=== PATIENT | female | born 2000 | race American Indian/Alaskan Native ===

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

== ENCOUNTER 2019-08-26 09:44 | Emergency (ER) | payer MEDICAID, OTHER ==
[2019-08-26 09:59] VITALS: BP 117/77; PULSE 101
[2019-08-26 10:34] LABS: ANION GAP 14.1; CHLORIDE,CL 101 mmol/L (101-111); SODIUM,NA 132 mmol/L (135-145)
[2019-08-26] MEDS ORDERED: Sodium Chloride 0.9% 1,000 ML IV ONE (10:37)
[2019-08-26] MEDS ORDERED: Levofloxacin/Dextrose 5%-Water 750 MG in Premix Bag 1 BAG IV ONE (10:58)
[2019-08-26] MEDS ORDERED: Ketorolac 30 MG/ML SDV IVPUSH ONE (11:02)
--- NOTE | 2019-08-26 11:02 | EDM.PDOC ---
ED HPI GENERAL MEDICAL PROBLEM - General Chief Complaint: Flank Pain Stated Complaint: PAIN IN BACK/CHILLS Time Seen by Provider: 08/26/19 09:55 Source of Information: Reports: Patient History Limitations: Reports: No Limitations - History of Present Illness INITIAL COMMENTS - FREE TEXT/NARRATIVE: ED with c/o right flank pain x 2 days with fever chills. Emesis x one yesterday. No diarrhea. no pain with urination. Other Treatments COLON AND RECTAL SURGEON: Advil 400mg po COLON AND RECTAL SURGEON. Right Flank Pain Score (Numeric/FACES): 7 - Related Data Allergies Allergy/AdvReac Type Severity Reaction Status Date / Time cephalexin Allergy Other Verified 08/26/19 10:10 Home Meds: Home Meds . [No Known Home Meds] 11/24/16 [History] Past Medical History - Past Health History Medical/Surgical History: Denies Medical/Surgical History HEENT History: Reports: Impaired Vision, Other (See Below) Other HEENT History: cyst removal Cardiovascular History: Reports: None Respiratory History: Reports: None Gastrointestinal History: Reports: None Genitourinary History: Reports: None MENTAL HEALTH NURSE History: Reports: , Other (See Below) Other MENTAL HEALTH NURSE History: IUD implanted. To be removed 2020 Musculoskeletal History: Reports: None Neurological History: Reports: None Psychiatric History: Reports: None Endocrine/Metabolic History: Reports: None Hematologic History: Reports: None Immunologic History: Reports: None Oncologic (Cancer) History: Reports: None Dermatologic History: Reports: None - Infectious Disease History Infectious Disease History: Reports: Chicken Pox - Past Surgical History Head Surgeries/Procedures: Reports: None HEENT Surgical History: Reports: Other (See Below) Other HEENT Surgeries/Procedures: cyst on head removed. Cardiovascular Surgical History: Reports: None Respiratory Surgical History: Reports: None GI Surgical History: Reports: None Female Surgical History: Reports: None Musculoskeletal Surgical History: Reports: None Oncologic Surgical History: Reports: None Social & Family History - Family History Family Medical History: Noncontributory - Tobacco Use Smoking Status *Q: Current Every Day Smoker Years of Tobacco use: 4 Packs/Tins Daily: 0.5 - Caffeine Use Caffeine Use: Reports: Coffee - Recreational Drug Use Recreational Drug Use: Yes Drug Use in Last 12 Months: Yes Recreational Drug Type: Reports: Marijuana/Hashish Recreational Drug Use Frequency: Monthly ED ROS GENERAL - Review of Systems Review Of Systems: Comprehensive ROS is negative, except as noted in HPI. ED EXAM,LOWER BACK PAIN/INJURY - Physical Exam Exam: See Below Exam Limited By: No Limitations General Appearance: Alert, Mild Distress Eye Exam: Bilateral Eye: EOMI Ears: Normal External Exam, Hearing Grossly Normal Throat/Mouth: Normal Inspection, Normal Voice Head: Atraumatic, Normocephalic Neck: Normal Inspection, Full Range of Motion Respiratory/Chest: No Respiratory Distress, Lungs Clear, Normal Breath Sounds Cardiovascular: Regular Rate, Rhythm GI/Abdominal: Normal Bowel Sounds, Soft Back Exam: CVA Tenderness (R). No: CVA Tenderness (L) Extremities: Normal Inspection, Normal Range of Motion Neurological: Alert, Normal Mood/Affect, Normal Dorsiflexion, No Motor/Sensory Deficits Psychiatric: Normal Affect Skin Exam: Warm, Dry, Intact, Normal Color, No Rash Course - Vital Signs Last Recorded V/S: Last Vital Signs Temp 97.8 F 08/26/19 09:55 Pulse 101 H 08/26/19 09:55 Resp 18 08/26/19 09:55 BP 117/77 08/26/19 09:55 Pulse Ox 100 08/26/19 09:55 - Orders/Labs/Meds Orders: Active Orders 24 hr Category Date Time Status CULTURE BLOOD [BC] Stat Lab 08/26/19 10:05 Received CULTURE URINE [RM] Stat Lab 08/26/19 10:11 Received Levofloxacin/Dextrose 5%-Water [Levaquin in D5W 750 MG/ Med 08/26/19 10:58 Active 150 ML] 750 mg Premix Bag 1 bag IV ONETIME Medication Orders Levofloxacin/Dextrose 750 mg/ (Premix) 150 mls @ 100 mls/hr IV ONETIME ONE Stop: 08/26/19 12:27 Last Admin: 08/26/19 11:07 Dose: 100 mls/hr Labs: Laboratory Tests 08/26/19 08/26/19 08/26/19 Range/Units 10:05 10:05 10:05 WBC 17.9 H (5.0-10.0) 10^3/uL RBC 4.28 (4.2-5.4) 10^6/uL Hgb 13.1 (12.0-16.0) g/dL Hct 38.9 (37.0-47.0) % MCV 90.9 D (80-100) fL MCH 30.6 (27.0-34.0) pg MCHC 33.7 (33.0-35.0) g/dL Plt Count 221 (150-450) 10^3/uL Neut % (Auto) 84.4 H (42.2-75.2) % Lymph % (Auto) 7.6 L (20.5-50.1) % [place] % (Auto) 7.8 (2-8) % Eos % (Auto) 0.1 L (1.0-3.0) % Baso % (Auto) 0.1 (0.0-1.0) % Sodium 132 L D (135-145) mmol/L Potassium 4.1 (3.6-5.0) mmol/L Chloride 101 (101-111) mmol/L Carbon Dioxide 21.0 (21.0-31.0) mmol/L Anion Gap 14.1 BUN 10 (7-18) mg/dL Creatinine 0.8 (0.6-1.3) mg/dL Est Cr Clr Drug Dosing 118.21 mL/min Estimated GFR (MDRD) > 60 BUN/Creatinine Ratio 12.50 Glucose 131 H (74-105) mg/dL Lactic Acid 1.1 (0.5-2.0) mmol/L Calcium 8.8 (8.4-10.2) mg/dl Total Bilirubin 0.8 (0.2-1.0) mg/dL AST 17 (10-42) IU/L ALT 13 (10-60) IU/L Alkaline Phosphatase 56 (42-121) IU/L Total Protein 6.7 (6.7-8.2) g/dl Albumin 3.8 (3.2-5.5) g/dl Globulin 2.9 Albumin/Globulin Ratio 1.31 Amylase 30 (28-100) U/L Lipase 28 (22-51) U/L HCG, Qual Negative Urine Color (YELLOW) Urine Appearance (CLEAR) Urine pH (5.0-9.0) Ur Specific [place] (1.005-1.030) Urine Protein (NEGATIVE) Urine Glucose (UA) (NEGATIVE) Urine Ketones (NEGATIVE) Urine Occult Blood (NEGATIVE) Urine Nitrite (NEGATIVE) Urine Bilirubin (NEGATIVE) Urine Urobilinogen (0.2-1.0) mg/dL Ur Leukocyte Esterase (NEGATIVE) Urine RBC /HPF Urine WBC (0-5/HPF) /HPF Ur Epithelial Cells (NOT SEEN) /HPF Amorphous Sediment (NOT SEEN) /HPF Urine Bacteria (0-FEW/HPF) /HPF Urine Mucus (NOT SEEN) /LPF Urine Opiates Screen (NEGATIVE) Ur Oxycodone Screen (NEGATIVE) Urine Methadone Screen (NEGATIVE) Ur Barbiturates Screen (NEGATIVE) U Tricyclic Antidepress (NEGATIVE) Ur Phencyclidine Scrn (NEGATIVE) Ur Amphetamine Screen (NEGATIVE) U Methamphetamines Scrn (NEGATIVE) Urine MDMA Screen (NEGATIVE) U Benzodiazepines Scrn (NEGATIVE) Urine Cocaine Screen (NEGATIVE) U Marijuana (THC) Screen (NEGATIVE) 08/26/19 08/26/19 Range/Units 10:11 10:11 WBC (5.0-10.0) 10^3/uL RBC (4.2-5.4) 10^6/uL Hgb (12.0-16.0) g/dL Hct (37.0-47.0) % MCV (80-100) fL MCH (27.0-34.0) pg MCHC (33.0-35.0) g/dL Plt Count (150-450) 10^3/uL Neut % (Auto) (42.2-75.2) % Lymph % (Auto) (20.5-50.1) % [place] % (Auto) (2-8) % Eos % (Auto) (1.0-3.0) % Baso % (Auto) (0.0-1.0) % Sodium (135-145) mmol/L Potassium (3.6-5.0) mmol/L Chloride (101-111) mmol/L Carbon Dioxide (21.0-31.0) mmol/L Anion Gap BUN (7-18) mg/dL Creatinine (0.6-1.3) mg/dL Est Cr Clr Drug Dosing mL/min Estimated GFR (MDRD) BUN/Creatinine Ratio Glucose (74-105) mg/dL Lactic Acid (0.5-2.0) mmol/L Calcium (8.4-10.2) mg/dl Total Bilirubin (0.2-1.0) mg/dL AST (10-42) IU/L ALT (10-60) IU/L Alkaline Phosphatase (42-121) IU/L Total Protein (6.7-8.2) g/dl Albumin (3.2-5.5) g/dl Globulin Albumin/Globulin Ratio Amylase (28-100) U/L Lipase (22-51) U/L HCG, Qual Urine Color Dark yellow (YELLOW) Urine Appearance Cloudy (CLEAR) Urine pH 5.5 (5.0-9.0) Ur Specific [place] 1.025 (1.005-1.030) Urine Protein 100 H (NEGATIVE) Urine Glucose (UA) Negative (NEGATIVE) Urine Ketones Trace H (NEGATIVE) Urine Occult Blood Moderate H (NEGATIVE) Urine Nitrite Positive H (NEGATIVE) Urine Bilirubin Negative (NEGATIVE) Urine Urobilinogen 0.2 (0.2-1.0) mg/dL Ur Leukocyte Esterase Large H (NEGATIVE) Urine RBC 5-10 H /HPF Urine WBC >100 H (0-5/HPF) /HPF Ur Epithelial Cells Few (NOT SEEN) /HPF Amorphous Sediment Rare (NOT SEEN) /HPF Urine Bacteria Few (0-FEW/HPF) /HPF Urine Mucus Few H (NOT SEEN) /LPF Urine Opiates Screen Negative (NEGATIVE) Ur Oxycodone Screen Negative (NEGATIVE) Urine Methadone Screen Negative (NEGATIVE) Ur Barbiturates Screen Negative (NEGATIVE) U Tricyclic Antidepress Negative (NEGATIVE) Ur Phencyclidine Scrn Negative (NEGATIVE) Ur Amphetamine Screen Negative (NEGATIVE) U Methamphetamines Scrn Negative (NEGATIVE) Urine MDMA Screen Negative (NEGATIVE) U Benzodiazepines Scrn Negative (NEGATIVE) Urine Cocaine Screen Negative (NEGATIVE) U Marijuana (THC) Screen Positive H (NEGATIVE) Meds: Medications Generic Name Dose Route Start Last Admin Trade Name Freq PRN Reason Stop Dose Admin Levofloxacin/Dextrose 750 mg/ 150 mls @ 100 mls/hr 08/26/19 10:58 08/26/19 11 :07 Premix IV 08/26/19 12:27 100 mls/hr ONETIME ONE Administration Discontinued Medications Generic Name Dose Route Start Last Admin Trade Name Freq PRN Reason Stop Dose Admin Sodium Chloride 1,000 mls @ 999 mls/hr 08/26/19 10:37 08/26/19 10:40 Normal Saline IV 08/26/19 11:37 999 mls/hr .BOLUS ONE Administration Ketorolac Tromethamine 30 mg 08/26/19 11:02 08/26/19 11:09 Toradol IVPUSH 08/26/19 11:03 30 mg ONETIME ONE Administration Departure - Departure Time of Disposition: 11:42 Disposition: Home, Self-Care 01 Condition: Good Clinical Impression: Pyelonephritis - Discharge Information *PRESCRIPTION DRUG MONITORING PROGRAM REVIEWED*: No *COPY OF PRESCRIPTION DRUG MONITORING REPORT IN PATIENT TEQUILA: No Instructions: Pyelonephritis, Adult, [id number] Forms: ED Department Discharge Additional Instructions: cipro 500mg one twice daily for one week follow up if pain worsening, increased fever, chills, vomiting and not able to eat or drink tylenol 650mg every 4-6 hours as needed Sepsis Event Note - Evaluation Sepsis Screening Result: No Definite Risk - Focused Exam Vital Signs: Vital Signs Temp Pulse Resp BP Pulse Ox 08/26/19 09:55 97.8 F 101 H 18 117/77 100 Date Exam was Performed: 08/26/19 Time Exam was Performed: 11:42 - My Orders Last 24 Hours: My Active Orders 08/26/19 10:05 CULTURE BLOOD [BC] Stat 08/26/19 10:11 CULTURE URINE [RM] Stat 08/26/19 10:58 Levofloxacin/Dextrose 5%-Water [Levaquin in D5W 750 MG/150 ML] 750 mg Premix Bag 1 bag IV ONETIME - Assessment/Plan Last 24 Hours: My Active Orders 08/26/19 10:05 CULTURE BLOOD [BC] Stat 08/26/19 10:11 CULTURE URINE [RM] Stat 08/26/19 10:58 Levofloxacin/Dextrose 5%-Water [Levaquin in D5W 750 MG/150 ML] 750 mg Premix Bag 1 bag IV ONETIME
== END 2019-08-26 12:45 | disposition home or self-care (01) ==
LOC: DL.ED 09:44
DX: N12 Tubulo-interstitial nephritis, not specified as acute or chronic (principal)
CPT/HCPCS: 36415; 80053; 80305; 81001; 82150; 83605; 83690; 84703; 85025; 87040; 87086; 87088; 87186; 96365; 96375; 99283; 99284; J1885; J1956; J7030

== ENCOUNTER 2019-10-12 08:58 | Emergency (ER) | payer MEDICAID, OTHER ==
[2019-10-12 09:13] VITALS: BP 107/68; PULSE 78
[2019-10-12] MEDS ORDERED: Lidocaine 2% with EPINEPHrine 1:200,000 20 ML SDV INJECT ONE (09:23)
--- NOTE | 2019-10-12 09:49 | EDM.PDOC ---
<Zachary Nunez - Last Filed: 10/12/19 09:44> ED HPI GENERAL MEDICAL PROBLEM - General Chief Complaint: Skin Complaint Stated Complaint: BOIL IN GROINED AREA Time Seen by Provider: 10/12/19 09:30 Source of Information: Reports: Patient, RN, RN Notes Reviewed History Limitations: Reports: No Limitations - History of Present Illness INITIAL COMMENTS - FREE TEXT/NARRATIVE: Patient presents to the ER with complaints of an abscess on her vaginal area. Symptoms began 3-4 days ago and has progressively gotten larger and more painful. Patient denies fever, urinary symptoms or pain anywhere else. Onset: Gradual (3-4 days getting worse) Duration: Constant Location: Reports: Pelvis (right vaginal area) Quality: Reports: Ache Severity: Moderate Improves with: Reports: None Worsens with: Reports: None Right Vaginal Pain Score (Numeric/FACES): 10 - Related Data Allergies Allergy/AdvReac Type Severity Reaction Status Date / Time cephalexin Allergy turned all Verified 10/12/19 09:09 red Home Meds: Home Meds . [No Known Home Meds] 11/24/16 [History] Past Medical History - Past Health History Medical/Surgical History: Denies Medical/Surgical History HEENT History: Reports: Impaired Vision, Other (See Below) Other HEENT History: cyst removal Cardiovascular History: Reports: None Respiratory History: Reports: None Gastrointestinal History: Reports: None Genitourinary History: Reports: None INDUSTRIAL LABORER History: Reports: , Other (See Below) Other INDUSTRIAL LABORER History: IUD implanted. To be removed 2020 Musculoskeletal History: Reports: None Neurological History: Reports: None Psychiatric History: Reports: None Endocrine/Metabolic History: Reports: None Hematologic History: Reports: None Immunologic History: Reports: None Oncologic (Cancer) History: Reports: None Dermatologic History: Reports: None - Infectious Disease History Infectious Disease History: Reports: Chicken Pox - Past Surgical History Head Surgeries/Procedures: Reports: None HEENT Surgical History: Reports: Other (See Below) Other HEENT Surgeries/Procedures: cyst on head removed. Cardiovascular Surgical History: Reports: None Respiratory Surgical History: Reports: None GI Surgical History: Reports: None Female Surgical History: Reports: None Musculoskeletal Surgical History: Reports: None Oncologic Surgical History: Reports: None Social & Family History - Family History Family Medical History: Noncontributory - Tobacco Use Smoking Status *Q: Current Every Day Smoker Years of Tobacco use: 3 Packs/Tins Daily: 0.3 - Caffeine Use Caffeine Use: Reports: Coffee ED ROS GENERAL - Review of Systems Review Of Systems: Comprehensive ROS is negative, except as noted in HPI. ED EXAM, SKIN/RASH Exam: See Below Exam Limited By: No Limitations General Appearance: Alert, WD/WN, Moderate Distress Eye Exam: Bilateral Eye: EOMI, Normal Inspection, PERRL Ears: Normal External Exam, Normal Canal, Hearing Grossly Normal, Normal TMs Nose: Normal Inspection, Normal Mucosa, No Blood Throat/Mouth: Normal Inspection, Normal Lips, Normal Teeth, Normal Gums, Normal Oropharynx, Normal Voice, No Airway Compromise Head: Atraumatic, Normocephalic Respiratory/Chest: No Respiratory Distress, Lungs Clear, Normal Breath Sounds, No Accessory Muscle Use, Chest Non-Tender Cardiovascular: Normal Peripheral Pulses, Regular Rate, Rhythm, No Edema, No Gallop, No JVD, No Murmur, No Rub GI/Abdominal: Normal Bowel Sounds, Soft, Non-Tender, No Organomegaly, No Distention, No Abnormal Bruit, No Mass (Female) Exam: Other (abscess to the right outer vaginal area, extremely tender with palpation) Skin: Warm, Dry, Erythema (right outer vaginal area), Increased Warmth Location, Skin: Genital (right outer vaginal area) Characteristics: Erythematous Associated features: Warmth, Tenderness, Swelling ED SKIN PROCEDURES - I&D Skin Prep: Providone-Iodine (Betadine), Isopropyl Alcohol (Alcohol) Local Anesthesia: Lidocaine: 2% with EPI Local Anesthetic Volume: 5cc Area Incised With: 15 Blade Drainage: Purulent, Bloody, Moderate Amount Probed to Break Up Loculations: No Packed With: None Sterile Dressinx4(s) Complications: No Course - Vital Signs Last Recorded V/S: Last Vital Signs Temp 36.6 C 10/12/19 09:02 Pulse 78 10/12/19 09:02 Resp 16 10/12/19 09:02 BP 107/68 10/12/19 09:02 Pulse Ox 100 10/12/19 09:02 - Orders/Labs/Meds Orders: Active Orders 24 hr Category Date Time Status CULTURE WOUND [RM] Stat Lab 10/12/19 09:53 Ordered Meds: Medications Discontinued Medications Generic Name Dose Route Start Last Admin Trade Name Freq PRN Reason Stop Dose Admin Lidocaine/Epinephrine 20 ml 10/12/19 09:23 10/12/19 09:42 Xylocaine-Mpf 2%-Epi 1:200,000 INJECT 10/12/19 09:24 20 ml ONETIME ONE Administration Departure - Departure Time of Disposition: 09:51 Disposition: Home, Self-Care 01 Condition: Good Clinical Impression: Abscess - Discharge Information *PRESCRIPTION DRUG MONITORING PROGRAM REVIEWED*: Not Applicable *COPY OF PRESCRIPTION DRUG MONITORING REPORT IN PATIENT TEQUILA: Not Applicable Instructions: Skin Abscess, Incision and Drainage, Care After, Incision and Drainage Forms: ED Department Discharge Additional Instructions: Rx: Clindamycin 300 mg Take the antibiotic Clindamycin 4 times daily for 10 days. Keep area clean with sterile dressings. You can shower and bathe as usual. If signs and symptoms of abscess not improving or getting worse return to clinic or ER for reevaluation. Sepsis Event Note - Evaluation Sepsis Screening Result: No Definite Risk - Focused Exam Vital Signs: Vital Signs Temp Pulse Resp BP Pulse Ox 10/12/19 09:02 36.6 C 78 16 107/68 100 Date Exam was Performed: 10/12/19 Time Exam was Performed: 09:44 - My Orders Last 24 Hours: My Active Orders 10/12/19 09:53 CULTURE WOUND [RM] Stat - Assessment/Plan Last 24 Hours: My Active Orders 10/12/19 09:53 CULTURE WOUND [RM] Stat <Alvin Evans - Last Filed: 10/12/19 10:04> Course - Re-Assessments/Exams Free Text/Narrative Re-Assessment/Exam: 10/12/19 10:04 I have examined the patient. I have discussed findings and treatment plan with the PA student. I agree with the assessment and plan in the following students note. Sepsis Event Note - Focused Exam Date Exam was Performed: 10/12/19 Time Exam was Performed: 10:04
== END 2019-10-12 10:15 | disposition home or self-care (01) ==
LOC: DL.ED 08:58
DX: N76.0 Acute vaginitis (principal); F17.210 Nicotine dependence, cigarettes, uncomplicated; Z88.1 Allergy status to other antibiotic agents
CPT/HCPCS: 56405; 87070; 87077; 87186; 99283; 99283-25

== ENCOUNTER 2022-11-02 22:12 | Emergency (ER) | payer MEDICAID ==
[2022-11-02 22:42] VITALS: BP 130/99; PULSE 100
== END 2022-11-02 23:51 ==
LOC: DL.ED 22:12
DX: Z02.89 Encounter for other administrative examinations (principal); Z88.1 Allergy status to other antibiotic agents
CPT/HCPCS: 36415; 84703; 99282; 99283

== ENCOUNTER 2023-05-26 14:36 | Emergency (ER) | payer MEDICAID, OTHER ==
[2023-05-26 14:48] VITALS: BP 91/62; PULSE 117
[2023-05-26] MEDS ORDERED: Bacitracin Oint 1 GM U/D Packet ONE (14:56)
[2023-05-26] MEDS ORDERED: Bacitracin Oint 1 GM U/D Packet TOP ONE (14:58)
== END 2023-05-26 15:30 ==
LOC: DL.ED 14:36
DX: S50.12XA Contusion of left forearm, initial encounter (principal); Z88.1 Allergy status to other antibiotic agents; Y33.XXXA Other specified events, undetermined intent, initial encounter
CPT/HCPCS: 73090-LT; 99283; 99284; A9270-GY

== ENCOUNTER 2024-11-27 18:29 | Emergency (ER) | payer MEDICAID ==
[2024-11-27 18:47] VITALS: BP 130/92; PULSE 119
== END 2024-11-27 18:49 | disposition home or self-care (01) ==
LOC: DL.ED 18:29
DX: O9A.312 Physical abuse complicating pregnancy, second trimester (principal); L53.9 Erythematous condition, unspecified; Z88.1 Allergy status to other antibiotic agents; Z3A.15 15 weeks gestation of pregnancy; Y04.0XXA Assault by unarmed brawl or fight, initial encounter
CPT/HCPCS: 99283

== ENCOUNTER 2025-05-05 07:18 | Inpatient (IN) | payer BC, MEDICAID ==
[2025-05-05] MEDS ORDERED: Carboprost Tromethamine 250 MCG/1 ML Amp IM PRN (12:56)
[2025-05-05] MEDS ORDERED: fentaNYL 100 MCG/2 ML SDV IVPUSH PRN (12:56)
[2025-05-05] MEDS ORDERED: Sodium Chloride 0.9% 10 ML Syringe FLUSH PRN (12:56)
[2025-05-05] MEDS ORDERED: Misoprostol 50 MCG (1/2 of 100 MCG) Tab PO PRN (12:56)
[2025-05-05] MEDS ORDERED: Lactated Ringers 1,000 ML IV ONE (12:56)
[2025-05-05 16:04] LABS: PLATELET COUNT,PLT 253.0 10^3/uL (150-450); RED BLOOD CELL COUNT 3.92 10^6/uL (4.2-5.4); WHITE BLOOD CELL COUNT,WBC 10.4 10^3/uL (5.0-10.0)
[2025-05-05] MEDS: Misoprostol 50 MCG (1/2 of 100 MCG) Tab PO SCH (16:10)
[2025-05-06] MEDS: Misoprostol 50 MCG (1/2 of 100 MCG) Tab VAG ONE (01:20)
[2025-05-06] MEDS: Lactated Ringers 1,000 ML IV SCH (06:05)
[2025-05-06] MEDS: Oxytocin/Normal Saline 30 UNIT/500 ML BAG IV SCH (06:05)
[2025-05-06] MEDS: Nalbuphine HCl 10 MG/ 1ML Amp IM PRN (15:38)
[2025-05-06] MEDS ORDERED: fentaNYL 100 MCG/2 ML SDV EPIDUR ONE (20:21)
[2025-05-06] MEDS ORDERED: fentaNYL 100 MCG/2 ML SDV ONE (20:21)
[2025-05-06] MEDS: Ondansetron 4 MG/2 ML SDV IVPUSH PRN (23:10)
[2025-05-07] MEDS ORDERED: Benzocaine/Menthol 20%-0.5% Spray 78 GM Cannister TOP PRN (03:18)
[2025-05-07] MEDS: Witch Hazel Medicated Pads 100/Jar TOP PRN (05:58)
[2025-05-07] MEDS: Measles, Mumps & Rubella Vaccine 0.5 ML SDV SUBCUT ONE (09:19)
[2025-05-08] MEDS ORDERED: Carboprost Tromethamine 250 MCG/1 ML Amp IM PRN (07:10)
[2025-05-08] MEDS ORDERED: Oxytocin 10 Units/1 ML SDV IM PRN (07:10)
[2025-05-08] MEDS ORDERED: Sodium Chloride 0.9% 10 ML Syringe FLUSH PRN (07:10)
[2025-05-08] MEDS ORDERED: Benzocaine/Menthol 20%-0.5% Spray 78 GM Cannister TOP PRN (07:10)
[2025-05-08] MEDS: Prenatal Multivitamin with Calcium/Folic Acid/Iron Tab PO SCH (07:19)
[2025-05-08 07:33] LABS: PLATELET COUNT,PLT 229.0 10^3/uL (150-450); RED BLOOD CELL COUNT 3.92 10^6/uL (4.2-5.4); WHITE BLOOD CELL COUNT,WBC 11.7 10^3/uL (5.0-10.0)
[2025-05-08 08:05] VITALS: BP 120/64; PULSE 82
== END 2025-05-08 08:45 | disposition home or self-care (01) | DRG 560 ==
LOC: DL.OB 15:31 → OBSVTOIN 05-06 21:25
PROVIDERS: ADMIT Family Medicine; ATTEND Obstetrics & Gynecology
PROC: 10E0XZZ Delivery of Products of Conception, External Approach (ICD-10-PCS; principal; 2025-05-06)
PROC: 10907ZC Drainage of Amniotic Fluid, Therapeutic from Products of Conception, Via Natural or Artificial Opening (ICD-10-PCS; 2025-05-06)
PROC: 4A1HXCZ Monitoring of Products of Conception, Cardiac Rate, External Approach (ICD-10-PCS; 2025-05-06)
PROC: 3E033VJ Introduction of Other Hormone into Peripheral Vein, Percutaneous Approach (ICD-10-PCS; 2025-05-06)
PROC: 3E0DXGC Introduction of Other Therapeutic Substance into Mouth and Pharynx, External Approach (ICD-10-PCS; 2025-05-06)
PROC: 3E0R3BZ Introduction of Anesthetic Agent into Spinal Canal, Percutaneous Approach (ICD-10-PCS; 2025-05-06)
PROC: 00HU33Z Insertion of Infusion Device into Spinal Canal, Percutaneous Approach (ICD-10-PCS; 2025-05-06)
DX: O76 Abnormality in fetal heart rate and rhythm complicating labor and delivery (principal); O66.0 Obstructed labor due to shoulder dystocia; Z3A.39 39 weeks gestation of pregnancy; Z37.0 Single live birth
CPT/HCPCS: 36415; 51702; 59409; 85027; 90471; 90707; A9270-GY; J2210; J2300; J2405; J2590; J3010; J7120